=== PATIENT | male | born 1990 | race Caucasian/White ===

== ENCOUNTER 2016-12-07 07:49 | Day surgery (SDC) | payer MEDICAID ==
[~2016-12-07] VITALS: Ht 162.6 cm; Wt 100.0 kg
[~2016-12-07 07:49] MED LIST: 0.9% SODIUM CHLORIDE 10 ML VIAL IVP ONE; DEXAMETHASONE SOD PHOS 4 MG/ML VIAL IVP ONE; EPHEDrine SULFATE 50 MG/ML VIAL IM ONE; FentaNYL CITRATE-PF 100 MCG/2 ML VIAL IVP ONE; LIDOCAINE HCL/PF 2% 5 ML VIAL IM ONE; METOCLOPRAMIDE HCL 5 MG/ML 2 ML VIAL IVP ONE; MIDAZOLAM HCL 2 MG/2 ML VIAL IVP ONE; ONDANSETRON HCL 4 MG/2 ML VIAL IVP ONE; PROPOFOL 1% 20 ML VIAL IVP ONE
[2016-12-07] MEDS ORDERED: RINGERS SOLUTION,LACTATED 1,000 ML IV ONE ×3 (08:09→11:17)
[2016-12-07] MEDS ORDERED: CeFAZolin 2 GM/DEXTROSE 50 ML IV ONE (08:09)
[2016-12-07] MEDS ORDERED: GUM MASTIC/STORAX/MSAL/ALCOHOL LIQUID 0.67 ML VIAL TP ONE ×2 (09:35→10:23)
[2016-12-07] MEDS: BUPIVACAINE HCL/PF 0.5% 30 ML VIAL ONE ×2 (10:00→10:34)
[2016-12-07] MEDS: LIDOCAINE HCL 2%/EPI 1:200,000/PF 10 ML VIAL ONE ×2 (10:00→10:35)
[2016-12-07] MEDS ORDERED: MEPERIDINE-PF 25 MG/ML SYRINGE IVP PRN (10:15)
[2016-12-07] MEDS ORDERED: HYDROmorphone 2 MG/ML SYRINGE IVP PRN (10:15)
[2016-12-07] MEDS ORDERED: FentaNYL CITRATE-PF 100 MCG/2 ML VIAL IVP PRN (10:15)
[2016-12-07] MEDS ORDERED: IBUPROFEN 800 MG TABLET PO PRN (10:45)
[2016-12-07] MEDS ORDERED: ACETAMINOPHEN 500 MG TABLET PO PRN (10:45)
[2016-12-07] MEDS ORDERED: MEPERIDINE-PF 25 MG/ML SYRINGE ONE (11:14)
[2016-12-07] MEDS ORDERED: HYDROmorphone 2 MG/ML SYRINGE ONE ×2 (11:15→12:15)
[2016-12-07] MEDS ORDERED: IBUPROFEN 800 MG TABLET ONE (12:04)
[2016-12-07] MEDS ORDERED: HYDROmorphone 2 MG/ML SYRINGE IVP ONE (12:15)
[2016-12-07] MEDS ORDERED: OXYGEN THERAPY IH SCH (20:00)
== END 2016-12-07 13:15 | disposition home or self-care (01) ==
LOC: SURGERY 07:49
PROVIDERS: ATTEND Surgery
DX: D17.1 Benign lipomatous neoplasm of skin and subcutaneous tissue of trunk (principal); M41.9 Scoliosis, unspecified; G89.29 Other chronic pain; E66.9 Obesity, unspecified; F17.290 Nicotine dependence, other tobacco product, uncomplicated; Z72.89 Other problems related to lifestyle; Z90.49 Acquired absence of other specified parts of digestive tract
CPT/HCPCS: 21931; J0690; J1170; J2175; J3490 ×2; J7120; 88304; J1100; J2250; J2405; J2704; J2765; J3010